=== PATIENT | male | born 1970 | race Caucasian/White ===

== ENCOUNTER 2022-12-31 05:54 | Day surgery (SDC) | payer BC, OTHER ==
[~2022-12-31 05:54] MED LIST: Dextrose 5%-0.45% NaCl 1,000 ML IV SCH; Sodium Chloride 0.9% 10 ML Syringe FLUSH PRN; Sodium Chloride 0.9% 10 ML Syringe FLUSH SCH
[2022-12-31] MEDS ORDERED: Midazolam 1 MG/ML 2 ML SDV IV ONE ×7 (05:55→07:13)
[2022-12-31] MEDS ORDERED: fentaNYL 100 MCG/2 ML SDV IV ONE ×3 (05:55→07:07)
[2022-12-31] MEDS ORDERED: Midazolam 1 MG/ML 2 ML SDV ONE (06:59)
[2022-12-31] MEDS ORDERED: fentaNYL 100 MCG/2 ML SDV ONE (07:00)
[2022-12-31 09:42] VITALS: BP 114/66; PULSE 66
== END 2022-12-31 09:15 | disposition home or self-care (01) ==
LOC: DL.ENDO 05:54
PROVIDERS: ATTEND Internal Medicine Gastroenterology
DX: Z12.11 Encounter for screening for malignant neoplasm of colon (principal); K57.30 Diverticulosis of large intestine without perforation or abscess without bleeding; E66.09 Other obesity due to excess calories; E78.5 Hyperlipidemia, unspecified; G47.33 Obstructive sleep apnea (adult) (pediatric); R73.9 Hyperglycemia, unspecified; Z98.890 Other specified postprocedural states; Z72.0 Tobacco use; Z68.41 Body mass index [BMI] 40.0-44.9, adult
CPT/HCPCS: 45378; J2250; J3010; J7042